=== PATIENT | female | born 1955 | race Two or more races ===

== ENCOUNTER 2017-07-04 13:13 | Emergency (ER) | payer MEDICAID ==
[~2017-07-04] VITALS: Ht 160 cm; Wt 106.6 kg
[~2017-07-04 13:13] MED LIST: LISI30TA36 PO; OLME40TA27 PO
[2017-07-04 13:32] VITALS: BP 171/78
== END 2017-07-04 14:37 | disposition home or self-care (01) ==
LOC: ER 13:13
DX: I10 Essential (primary) hypertension (principal); E03.9 Hypothyroidism, unspecified; Z76.0 Encounter for issue of repeat prescription; Z90.49 Acquired absence of other specified parts of digestive tract

== ENCOUNTER 2018-01-07 19:14 | Emergency (ER) | payer MEDICAID ==
[~2018-01-07] VITALS: Ht 160 cm; Wt 99.8 kg
[~2018-01-07 19:14] MED LIST changes: +OLME40TA19 PO; -OLME40TA27 PO
[2018-01-07 19:47] LABS: Urine Bacteria NONE SEEN /hpf (None Seen); Urine Blood TRACE /uL (Negative); Urine Specific Gravity 1.027 (1.001-1.035); Urine WBC 2 /hpf (0 - 5)
[2018-01-07 22:35] VITALS: BP 145/82
[2018-01-07] MEDS: LACTULOSE 20Gm/30ML SOLN PO ONE (23:17)
== END 2018-01-07 23:39 | disposition home or self-care (01) ==
LOC: ER 19:14
DX: K59.00 Constipation, unspecified (principal); K43.9 Ventral hernia without obstruction or gangrene; I10 Essential (primary) hypertension; E07.9 Disorder of thyroid, unspecified; E66.01 Morbid (severe) obesity due to excess calories; Z68.39 Body mass index [BMI] 39.0-39.9, adult; Z90.49 Acquired absence of other specified parts of digestive tract; Z79.899 Other long term (current) drug therapy
CPT/HCPCS: 74176; 81001

== ENCOUNTER 2018-07-20 15:08 | Emergency (ER) | payer MEDICAID ==
[~2018-07-20] VITALS: Ht 160 cm; Wt 108.9 kg
[2018-07-20 18:46] VITALS: BP 168/80
[2018-07-20] MEDS ORDERED: methylPREDNISolone SOD SUCC 125 MG/2 ML VL IM ONE (19:00)
[2018-07-20] MEDS ORDERED: KETOROLAC TROMETH 60MG/2ML VIAL IM ONE (19:00)
== END 2018-07-20 19:36 | disposition home or self-care (01) ==
LOC: ER 15:16
DX: S83.92XA Sprain of unspecified site of left knee, initial encounter (principal); M25.462 Effusion, left knee; I10 Essential (primary) hypertension; E07.9 Disorder of thyroid, unspecified; Z79.899 Other long term (current) drug therapy; Z90.49 Acquired absence of other specified parts of digestive tract; W06.XXXA Fall from bed, initial encounter; Y93.89 Activity, other specified; Y99.8 Other external cause status; Y92.89 Other specified places as the place of occurrence of the external cause
CPT/HCPCS: 29505; 73560; 96372; 99283; J1885; J2930

== ENCOUNTER 2018-08-18 14:17 | Emergency (ER) | payer MEDICAID ==
[~2018-08-18] VITALS: Ht 160 cm; Wt 108.9 kg
[2018-08-18 15:33] LABS: Basophils # (auto) 0.1 uL; Basophils % (auto) 0.6 % (0.0-2.0); Eosinophils # (auto) 0.2 uL; Eosinophils % (auto) 2.2 % (0.0-7.0); Hematocrit 44.8 % (36.0-46.0); Lymphocytes # (auto) 2.9 uL; Lymphocytes % (auto) 25.2 % (10.0-50.0); Mean Corpuscular Hemoglobin 28.4 pg (28.0-32.0); Mean Corpuscular Hgb Conc. 33.5 g/dL (32.0-36.0); Mean Corpuscular Volume 84.7 fL (80.0-100.0); Monocytes # (auto) 0.8 uL; Monocytes % (auto) 6.7 % (0.0-12.0); Neutrophils # (auto) 7.5 uL; Neutrophils % (auto) 65.3 % (37.0-80.0); Nucleated Red Blood Cells % 0.1 %; Platelet Count (auto) 245 10^3/uL (140-450); Red Blood Cells 5.29 10^6/uL (4.0-5.20); Red Cell Distribution Width 14.4 % (11.8-14.3); White Blood Cell 11.5 10^3/uL (4.4-10.8)
[2018-08-18 15:59] LABS: Alanine Aminotransferase 145 U/L (13-56); Albumin 4.1 g/dL (3.4-5.0); Aspartate Aminotransferase 77 U/L (15-37); Calcium 10.6 mg/dL (8.5-10.1)
[2018-08-18 16:00] VITALS: BP 167/97
[2018-08-18 16:02] LABS: BUN/Creatinine Ratio 18.2; Bilirubin, Total 0.4 mg/dL (0.2-1.0); Blood Urea Nitrogen 14 mg/dL (7-18); Carbon Dioxide 26 mmol/L (21-32); GFR African American 98 mL/min; GFR Non-African American 81 mL/min; Glucose 196 mg/dL (74-106); Total Protein 8.2 g/dL (6.4-8.2)
[2018-08-18 16:34] LABS: Chloride 103 mmol/L (98-107); Potassium 3.8 mmol/L (3.5-5.1); Sodium 136 mmol/L (136-145)
[2018-08-18 16:37] LABS: Alkaline Phosphatase 135 U/L (45-117); Magnesium 1.7 mg/dL (1.6-2.6)
[2018-08-18 17:08] LABS: Anion Gap 11.2 (5-15)
== END 2018-08-18 16:11 | disposition home or self-care (01) ==
LOC: ER 14:17
DX: R07.89 Other chest pain (principal); J20.9 Acute bronchitis, unspecified; E11.9 Type 2 diabetes mellitus without complications; I10 Essential (primary) hypertension; Z86.39 Personal history of other endocrine, nutritional and metabolic disease; Z90.49 Acquired absence of other specified parts of digestive tract; Z98.51 Tubal ligation status
CPT/HCPCS: 36415; 71046; 80053; 83735; 83880; 84484; 85025; 93005

== ENCOUNTER 2019-05-04 07:30 | Emergency (ER) | payer MEDICAID ==
[~2019-05-04] VITALS: Ht 160 cm; Wt 108.0 kg
[~2019-05-04 07:30] MED LIST changes: +LEVO500T21 PO; +LEVO50TA7 PO; -LISI30TA36 PO; +LISI40TA PO; +METF-372 PO; -OLME40TA19 PO; +OXYB5TAB61 PO
[2019-05-04 08:26] LABS: Basophils # (auto) 0.1 uL; Basophils % (auto) 0.5 % (0.0-2.0); Eosinophils # (auto) 0 uL; Eosinophils % (auto) 0.3 % (0.0-7.0); Hematocrit 43.7 % (36.0-46.0); Hemoglobin 14.7 g/dL (12.2-16.2); Lymphocytes # (auto) 1.7 uL; Lymphocytes % (auto) 12.7 % (10.0-50.0); Mean Corpuscular Hemoglobin 29.1 pg (28.0-32.0); Mean Corpuscular Hgb Conc. 33.7 g/dL (32.0-36.0); Mean Corpuscular Volume 86.5 fL (80.0-100.0); Monocytes % (auto) 7.9 % (0.0-12.0); Neutrophils # (auto) 10.4 uL; Neutrophils % (auto) 78.6 % (37.0-80.0); Nucleated Red Blood Cells % 0.1 %; Platelet Count (auto) 204 10^3/uL (140-450); Red Blood Cells 5.05 10^6/uL (4.0-5.20); White Blood Cell 13.2 10^3/uL (4.4-10.8)
[2019-05-04 08:41] LABS: Albumin 3.9 g/dL (3.4-5.0)
[2019-05-04 08:45] LABS: BUN/Creatinine Ratio 23.5; Bilirubin, Total 0.3 mg/dL (0.2-1.0); Total Protein 7.9 g/dL (6.4-8.2)
[2019-05-04 09:21] VITALS: BP 153/92
[2019-05-04] MEDS ORDERED: IOHEXOL 350 MG/ML 100ML IJ ONE (09:54)
[2019-05-04 10:26] LABS: Urine WBC None Seen /hpf (0 - 5)
[2019-05-04 10:34] LABS: Urine Bacteria NONE SEEN /hpf (None Seen); Urine Blood Negative /uL (Negative)
== END 2019-05-04 11:51 | disposition home or self-care (01) ==
LOC: ER 07:30
DX: J40 Bronchitis, not specified as acute or chronic (principal); E11.65 Type 2 diabetes mellitus with hyperglycemia; E07.9 Disorder of thyroid, unspecified; I10 Essential (primary) hypertension
CPT/HCPCS: 36415; 71046; 71275; 80053; 81001; 85025; 93005; 99284; Q9967

== ENCOUNTER 2019-12-15 05:30 | Emergency (ER) | payer MEDICAID ==
[~2019-12-15] VITALS: Ht 160 cm; Wt 86.6 kg
[~2019-12-15 05:30] MED LIST changes: -LISI40TA PO; +LISI40TA11 PO
[2019-12-15 05:51] VITALS: BP 184/77
[2019-12-15] MEDS ORDERED: KETOROLAC TROMETH 60MG/2ML VIAL IM ONE (07:15)
== END 2019-12-15 07:39 | disposition home or self-care (01) ==
LOC: ER 05:30
DX: M54.16 Radiculopathy, lumbar region (principal); E11.9 Type 2 diabetes mellitus without complications; I10 Essential (primary) hypertension; Z98.51 Tubal ligation status; Z90.49 Acquired absence of other specified parts of digestive tract; Z79.899 Other long term (current) drug therapy
CPT/HCPCS: 96372; 99283; J1885

== ENCOUNTER 2019-12-18 07:58 | Emergency (ER) | payer MEDICAID ==
[~2019-12-18] VITALS: Ht 160 cm; Wt 86.6 kg
[2019-12-18 08:07] VITALS: BP 155/107
[2019-12-18] MEDS ORDERED: KETOROLAC TROMETH 60MG/2ML VIAL IM ONE (09:15)
== END 2019-12-18 10:02 | disposition home or self-care (01) ==
LOC: ER 07:58
DX: M10.9 Gout, unspecified (principal); M11.231 Other chondrocalcinosis, right wrist
CPT/HCPCS: 73110; 96372; 99283; J1885

== ENCOUNTER 2020-05-27 16:10 | Emergency (ER) | payer MEDICAID ==
[~2020-05-27] VITALS: Ht 160 cm; Wt 83.0 kg
[~2020-05-27 16:10] MED LIST changes: -LEVO500T21 PO; +LEVO500T31 PO
[2020-05-27 16:16] VITALS: BP 158/95
[2020-05-27] MEDS ORDERED: methylPREDNISolone SOD SUCC 125 MG/2 ML VL IM ONE (17:30)
[2020-05-27] MEDS ORDERED: EPINEPHrine HCL 1 MG/1 ML AMP SC ONE (17:30)
== END 2020-05-27 18:10 | disposition home or self-care (01) ==
LOC: ER 16:10
DX: T78.40XA Allergy, unspecified, initial encounter (principal); I10 Essential (primary) hypertension; Z98.51 Tubal ligation status; Z90.49 Acquired absence of other specified parts of digestive tract; X58.XXXA Exposure to other specified factors, initial encounter
CPT/HCPCS: 96372; 99284; J0171; J2930

== ENCOUNTER 2020-08-21 18:40 | Emergency (ER) | payer MEDICAID ==
[~2020-08-21] VITALS: Ht 160 cm; Wt 86.2 kg
[2020-08-21] MEDS ORDERED: KETOROLAC TROMETH 60MG/2ML VIAL IM ONE (21:00)
[2020-08-21 21:08] VITALS: BP 151/86
== END 2020-08-21 21:38 | disposition home or self-care (01) ==
LOC: ER 18:40
DX: S39.012A Strain of muscle, fascia and tendon of lower back, initial encounter (principal); M43.16 Spondylolisthesis, lumbar region; I10 Essential (primary) hypertension; Z98.51 Tubal ligation status; Z90.49 Acquired absence of other specified parts of digestive tract; X58.XXXA Exposure to other specified factors, initial encounter; Y93.89 Activity, other specified; Y92.89 Other specified places as the place of occurrence of the external cause; Y99.8 Other external cause status
CPT/HCPCS: 72100; 93005; 96372; 99285; J1885

== ENCOUNTER 2021-12-25 12:35 | Inpatient (IN) | payer OTHER, MEDICAID ==
[~2021-12-25] VITALS: Ht 160 cm; Wt 98.2 kg
[~2021-12-25 12:35] MED LIST changes: +AML5T PO; +AZIT250T8 PO; +HYDR12.55 PO; +LEV75T PO; +LISI2.5T47 PO; +LISI20TA28 PO
[2021-12-25 13:04] LABS: Basophils # (auto) 0 10 ^3/uL (0-0.2); Basophils % (auto) 0.5 % (0.0-2.0); Eosinophils # (auto) 0.1 10 ^3/uL (0-0.8); Eosinophils % (auto) 1.5 % (0.0-7.0); Hematocrit 43.1 % (36.0-46.0); Hemoglobin 14.1 g/dL (12.2-16.2); Lymphocytes # (auto) 2.2 10 ^3/uL (0.4-5.4); Lymphocytes % (auto) 32.3 % (10.0-50.0); Mean Corpuscular Hemoglobin 27.1 pg (28.0-32.0); Mean Corpuscular Hgb Conc. 32.8 g/dL (32.0-36.0); Mean Corpuscular Volume 82.6 fL (80.0-100.0); Monocytes # (auto) 0.5 10 ^3/uL (0-1.3); Monocytes % (auto) 7.4 % (0.0-12.0); Neutrophils # (auto) 3.9 10 ^3/uL (1.6-8.6); Neutrophils % (auto) 58.3 % (37.0-80.0); Nucleated Red Blood Cells % 0.1 %; Red Blood Cells 5.21 10^6/uL (4.0-5.20); Red Cell Distribution Width 13.7 % (11.8-14.3); White Blood Cell 6.7 10^3/uL (4.4-10.8)
[2021-12-25] MEDS ORDERED: ASPirin 325 MG TAB PO ONE (13:15)
[2021-12-25 13:19] LABS: Albumin 4.4 g/dL (3.4-5.0); Calcium 10.5 mg/dL (8.5-10.1); Potassium 4.7 mmol/L (3.5-5.1)
[2021-12-25 13:22] LABS: BUN/Creatinine Ratio 29.6; Bilirubin, Total 0.4 mg/dL (0.2-1.0)
[2021-12-25] MEDS: metFORMIN HYDROCHLORIDE 500 MG TAB PO SCH ×2 (18:00→20:12)
[2021-12-25] MEDS ORDERED: ENOXAPARIN SOD 30 MG/0.3 ML SYRINGE IV ONE (19:00)
[2021-12-25] MEDS ORDERED: NITROGLYCERIN 0.4 MG SL TAB SL PRN ×2 (19:00)
[2021-12-25] MEDS ORDERED: MORPHINE SULFATE INJ 2 MG/ml SYRG IV PRN (19:00)
[2021-12-25] MEDS ORDERED: ALUM & MAG HYDROX-SIMETH LIQ(MAALOX) 30 ML PO ONE (19:00)
[2021-12-25] MEDS ORDERED: MORPHINE SULFATE 4 MG/ML SYR/VIAL IV PRN (19:00)
[2021-12-25] MEDS ORDERED: ONDANSETRON HCL 4 MG/2 ML VIAL IV PRN (19:00)
[2021-12-25] MEDS ORDERED: DEXTROSE (50%) 50ML SYRG IV PRN (19:45)
[2021-12-25] MEDS ORDERED: IOHEXOL 300 MG/ML 100ML BOTTLE IJ ONE (20:19)
[2021-12-25] MEDS: ACCU-CHEK COMFORT CURVE STRIP VI SCH (22:00)
[2021-12-25] MEDS: ATORVASTATIN 20 MG TAB PO SCH (23:57)
[2021-12-25] MEDS: OXYBUTYNIN CHL 5 MG TAB PO SCH (23:57)
[2021-12-25] MEDS: METOPROLOL TARTRATE 25 MG TAB PO SCH (23:58)
[2021-12-25] MEDS: InsuLIN REG 1unit/0.01ml Soln (100units/ml) SC SCH (23:59)
[2021-12-26 01:32] VITALS: BP 139/74
[2021-12-26 01:46] LABS: Urine Bacteria FEW /hpf (None Seen); Urine Blood TRACE /uL (Negative); Urine WBC 36 /hpf (0 - 5)
[2021-12-26 01:47] LABS: Urine Specific Gravity > 1.050 (1.001-1.035)
[2021-12-26 05:00] VITALS: BP 124/62
[2021-12-26 05:29] LABS: Basophils # (auto) 0 10 ^3/uL (0-0.2); Basophils % (auto) 0.4 % (0.0-2.0); Eosinophils # (auto) 0.1 10 ^3/uL (0-0.8); Eosinophils % (auto) 1.8 % (0.0-7.0); Hematocrit 39.6 % (36.0-46.0); Hemoglobin 13.1 g/dL (12.2-16.2); Lymphocytes # (auto) 2.5 10 ^3/uL (0.4-5.4); Mean Corpuscular Hemoglobin 27.4 pg (28.0-32.0); Mean Corpuscular Hgb Conc. 33.1 g/dL (32.0-36.0); Mean Corpuscular Volume 82.7 fL (80.0-100.0); Monocytes # (auto) 0.5 10 ^3/uL (0-1.3); Monocytes % (auto) 6.8 % (0.0-12.0); Neutrophils # (auto) 4.1 10 ^3/uL (1.6-8.6); Nucleated Red Blood Cells % 0.5 %; Red Cell Distribution Width 13.6 % (11.8-14.3); White Blood Cell 7.2 10^3/uL (4.4-10.8)
[2021-12-26] MEDS: metFORMIN HYDROCHLORIDE 500 MG TAB PO SCH ×2 (06:19→17:44)
[2021-12-26] MEDS: HCTZ 25 MG TAB PO SCH (06:20)
[2021-12-26] MEDS: InsuLIN REG 1unit/0.01ml Soln (100units/ml) SC SCH ×4 (06:21→22:00)
[2021-12-26] MEDS: ACCU-CHEK COMFORT CURVE STRIP VI SCH ×4 (06:21→22:29)
[2021-12-26] MEDS ORDERED: LEVOTHYROXINE SODIUM 50 MCG TAB PO SCH (07:00)
[2021-12-26] MEDS: ASPirin 325 MG TAB PO SCH (08:52)
[2021-12-26] MEDS: DOCUSATE SOD 100 MG CAP PO SCH (08:54)
[2021-12-26] MEDS: ACETAMINOPHEN 325 MG TAB PO PRN ×2 (08:54→16:56)
[2021-12-26] MEDS: LISINOPRIL 20 MG TAB PO SCH (08:54)
[2021-12-26] MEDS: METOPROLOL TARTRATE 25 MG TAB PO SCH ×2 (08:55→21:44)
[2021-12-26] MEDS: amLODIPine BESYLATE 5 MG TAB PO SCH (08:55)
[2021-12-26] MEDS: LEVOTHYROXINE SODIUM 88 MCG TAB PO SCH (08:55)
[2021-12-26 09:00] VITALS: BP 145/83
[2021-12-26] MEDS: OXYBUTYNIN CHL 5 MG TAB PO SCH ×2 (09:19→21:44)
[2021-12-26 09:51] LABS: Potassium 4.3 mmol/L (3.5-5.1)
[2021-12-26 09:58] LABS: Albumin 4.2 g/dL (3.4-5.0); BUN/Creatinine Ratio 23.3; Bilirubin, Total 0.4 mg/dL (0.2-1.0); Calcium 10.3 mg/dL (8.5-10.1); Total Protein 7.6 g/dL (6.4-8.2)
[2021-12-26] MEDS ORDERED: PATIENTS OWN MEDICATION (Levothyroxine Sodium (Synthroid) 1 TAB) PO SCH (10:00)
[2021-12-26 13:00] VITALS: BP 108/65
[2021-12-26] MEDS ORDERED: cefTRIAXone 1GM/50ML D5W 50 ML IV ONE (14:45)
[2021-12-26] MEDS: SODIUM CHLORIDE 0.9% 1,000 ML IV SCH (16:56)
[2021-12-26 17:00] VITALS: BP 107/64
[2021-12-26 21:32] VITALS: BP 131/65
[2021-12-26] MEDS: ATORVASTATIN 20 MG TAB PO SCH (21:44)
[2021-12-27 04:32] VITALS: BP 125/72
[2021-12-27] MEDS: metFORMIN HYDROCHLORIDE 500 MG TAB PO SCH ×2 (06:00→17:42)
[2021-12-27] MEDS: LEVOTHYROXINE SODIUM 88 MCG TAB PO SCH ×2 (06:35→07:00)
[2021-12-27] MEDS: HCTZ 25 MG TAB PO SCH ×2 (06:35→06:49)
[2021-12-27] MEDS: InsuLIN REG 1unit/0.01ml Soln (100units/ml) SC SCH ×4 (07:00→22:00)
[2021-12-27] MEDS: ACCU-CHEK COMFORT CURVE STRIP VI SCH ×4 (07:10→22:00)
[2021-12-27 08:00] VITALS: BP 155/73
[2021-12-27] MEDS ORDERED: ADENOSINE 83 MG in GIVE UN-DILUTED 0 ML IV ONE (08:00)
[2021-12-27] MEDS: SODIUM CHLORIDE 0.9% 1,000 ML IV SCH ×2 (08:00→11:58)
[2021-12-27 09:19] VITALS: BP 155/73
[2021-12-27] MEDS: cefTRIAXone 1GM/50ML D5W 50 ML IV SCH (09:47)
[2021-12-27] MEDS: ASPirin 325 MG TAB PO SCH (09:48)
[2021-12-27] MEDS: DOCUSATE SOD 100 MG CAP PO SCH (09:48)
[2021-12-27] MEDS: OXYBUTYNIN CHL 5 MG TAB PO SCH ×2 (09:48→22:48)
[2021-12-27] MEDS: amLODIPine BESYLATE 5 MG TAB PO SCH (09:49)
[2021-12-27] MEDS: LISINOPRIL 20 MG TAB PO SCH (09:49)
[2021-12-27] MEDS: METOPROLOL TARTRATE 25 MG TAB PO SCH ×2 (09:49→22:00)
[2021-12-27 13:15] VITALS: BP 118/76
[2021-12-27 16:47] VITALS: BP 108/62
[2021-12-27 22:00] VITALS: BP 109/45
[2021-12-27] MEDS: ATORVASTATIN 20 MG TAB PO SCH (22:48)
[2021-12-28 06:10] VITALS: BP 124/65
[2021-12-28] MEDS: metFORMIN HYDROCHLORIDE 500 MG TAB PO SCH ×2 (06:40→18:03)
[2021-12-28] MEDS: ACCU-CHEK COMFORT CURVE STRIP VI SCH ×3 (06:41→17:28)
[2021-12-28] MEDS: LEVOTHYROXINE SODIUM 88 MCG TAB PO SCH (06:41)
[2021-12-28] MEDS: HCTZ 25 MG TAB PO SCH (06:41)
[2021-12-28] MEDS: InsuLIN REG 1unit/0.01ml Soln (100units/ml) SC SCH ×3 (06:42→18:04)
[2021-12-28 09:00] VITALS: BP 141/60
[2021-12-28] MEDS: cefTRIAXone 1GM/50ML D5W 50 ML IV SCH (09:19)
[2021-12-28] MEDS: ACETAMINOPHEN 325 MG TAB PO PRN (09:20)
[2021-12-28] MEDS ORDERED: ASPirin 81 mg TAB PO SCH (10:00)
[2021-12-28] MEDS: OXYBUTYNIN CHL 5 MG TAB PO SCH (10:22)
[2021-12-28] MEDS: METOPROLOL TARTRATE 25 MG TAB PO SCH (10:22)
[2021-12-28] MEDS: DOCUSATE SOD 100 MG CAP PO SCH (10:22)
[2021-12-28] MEDS: LISINOPRIL 20 MG TAB PO SCH (10:23)
[2021-12-28] MEDS: amLODIPine BESYLATE 5 MG TAB PO SCH (10:23)
[2021-12-28] MEDS ORDERED: CIPR500T4 PO (11:21)
[2021-12-28 13:00] VITALS: BP 143/72
[2021-12-28 17:00] VITALS: BP 116/64
[2021-12-28 17:30] VITALS: BP 116/64
[2021-12-28 17:45] VITALS: BP 116/64
== END 2021-12-28 18:38 | disposition home or self-care (01) | DRG 690 ==
LOC: ER 12:35 → TELE 19:11 → TELE-CENTR 23:53
PROVIDERS: ADMIT Nurse Practitioner Family; ATTEND Internal Medicine Nephrology
DX: N30.90 Cystitis, unspecified without hematuria (principal); E03.9 Hypothyroidism, unspecified; E11.9 Type 2 diabetes mellitus without complications; I10 Essential (primary) hypertension; R07.89 Other chest pain; H91.90 Unspecified hearing loss, unspecified ear; E78.5 Hyperlipidemia, unspecified; Z20.822 Contact with and (suspected) exposure to COVID-19; K57.30 Diverticulosis of large intestine without perforation or abscess without bleeding; N20.0 Calculus of kidney; R91.1 Solitary pulmonary nodule; N28.1 Cyst of kidney, acquired; Z98.84 Bariatric surgery status; Z79.899 Other long term (current) drug therapy; Z82.49 Family history of ischemic heart disease and other diseases of the circulatory system; Z90.49 Acquired absence of other specified parts of digestive tract; Z79.84 Long term (current) use of oral hypoglycemic drugs
CPT/HCPCS: 36415; 71045; 74177; 78452; 80053; 80061; 81001; 82306; 82962; 83036; 83690; 83735; 83970; 84443; 84484; 85025; 87086; 93005; 93017; 93306; 96372; 96374; G0378; J0153; J0696; J1815

== ENCOUNTER 2022-06-19 10:09 | Emergency (ER) | payer OTHER, MEDICAID ==
[~2022-06-19] VITALS: Ht 160 cm; Wt 94.5 kg
[~2022-06-19 10:09] MED LIST changes: -AZIT250T8 PO; +CIPR500T4 PO; -LEVO500T31 PO; -LISI2.5T47 PO; -LISI40TA11 PO
[2022-06-19 10:34] LABS: Basophils # (auto) 0 10 ^3/uL (0-0.2); Basophils % (auto) 0.4 % (0.0-2.0); Eosinophils # (auto) 0.1 10 ^3/uL (0-0.8); Eosinophils % (auto) 0.9 % (0.0-7.0); Hematocrit 43.9 % (36.0-46.0); Hemoglobin 15.2 g/dL (12.2-16.2); Lymphocytes # (auto) 2.8 10 ^3/uL (0.4-5.4); Lymphocytes % (auto) 29.8 % (10.0-50.0); Mean Corpuscular Hemoglobin 28.1 pg (28.0-32.0); Mean Corpuscular Hgb Conc. 34.5 g/dL (32.0-36.0); Mean Corpuscular Volume 81.5 fL (80.0-100.0); Monocytes # (auto) 0.6 10 ^3/uL (0-1.3); Monocytes % (auto) 6.2 % (0.0-12.0); Neutrophils # (auto) 5.9 10 ^3/uL (1.6-8.6); Neutrophils % (auto) 62.7 % (37.0-80.0); Red Blood Cells 5.39 10^6/uL (4.0-5.20); Red Cell Distribution Width 14.4 % (11.8-14.3); White Blood Cell 9.4 10^3/uL (4.4-10.8)
[2022-06-19] MEDS ORDERED: BACLOFEN 10 MG TAB PO STA (10:44)
[2022-06-19] MEDS ORDERED: ASPirin 81 mg TAB PO ONE (10:45)
[2022-06-19 10:51] LABS: Partial Thromboplastin Time 27.2 sec (24.6-33.4)
[2022-06-19 11:00] LABS: Albumin 4.1 g/dL (3.4-5.0); BUN/Creatinine Ratio 20.7 (10.0-20.0); Calcium 10.8 mg/dL (8.5-10.1); Magnesium 1.9 mg/dL (1.6-2.6); Potassium 4.2 mmol/L (3.5-5.1)
[2022-06-19 11:02] LABS: Bilirubin, Total 0.4 mg/dL (0.2-1.0); Total Protein 8.3 g/dL (6.4-8.2)
[2022-06-19 11:06] LABS: Urine Bacteria NONE SEEN /hpf (None Seen); Urine Blood Negative /uL (Negative); Urine Specific Gravity 1.021 (1.001-1.035); Urine WBC 18 /hpf (0 - 5)
[2022-06-19] MEDS ORDERED: MELO1TAB56 PO (13:09)
[2022-06-19] MEDS ORDERED: BACL10TA PO (13:09)
[2022-06-19 14:24] VITALS: BP 149/50
== END 2022-06-19 14:28 | disposition home or self-care (01) ==
LOC: ER 10:09
DX: M54.6 Pain in thoracic spine (principal); N39.0 Urinary tract infection, site not specified; E11.9 Type 2 diabetes mellitus without complications; I10 Essential (primary) hypertension; R06.02 Shortness of breath; Z98.51 Tubal ligation status; Z90.49 Acquired absence of other specified parts of digestive tract
CPT/HCPCS: 36415; 71045; 80053; 81001; 83735; 83880; 84484; 85025; 85610; 85730; 93005